=== PATIENT | female | born 1950 | race Two or more races ===

== ENCOUNTER → 2018-05-16 | Outpatient (CLI) | payer MEDICARE, BC ==
[2016-05-07 02:07] VITALS: BP 171/89
[~2018-05-16] MED LIST: BARIUM SULFATE 40% (APPLE) 148 GM PWD. PO ONE; HYDR-3164 PO
--- NOTE | 2018-05-16 14:52 | RAD ---
Video dysphasia study, 05/16/2018: History: Dysphasia The swallowing mechanism was examined fluoroscopically in the lateral projection while the patient ingested a variety of food materials mixed with barium. 1.4 minutes of fluoroscopy time was utilized. One video fluoroscopic loop was recorded by a member of the speech Department. The swallowing mechanism is intact. The patient ingested the thin materials, the thicker materials and barium coated solids without difficulty. There was normal pharyngeal peristalsis. No significant laryngeal penetration or aspiration occurred. A limited exam in the AP projection also show no abnormality. IMPRESSION: No significant abnormality is detected.
== END | disposition home or self-care (01) ==
LOC: RAD 14:12
PROVIDERS: ATTEND Family Medicine
DX: R13.19 Other dysphagia (principal)
CPT/HCPCS: 74230; 92611; G8996; G8997; G8998